=== PATIENT | female | born 1965 | race Caucasian/White ===

== ENCOUNTER 2021-02-20 13:13 | Emergency (ER) | payer MEDICAID, OTHER ==
[~2021-02-20] VITALS: Ht 157.5 cm; Wt 70.4 kg
[2021-02-20 13:27] VITALS: BP 134/92
[2021-02-20 14:35] VITALS: BP 133/85
== END 2021-02-20 14:35 ==
LOC: MED 13:13
DX: S00.81XA Abrasion of other part of head, initial encounter (principal); R55 Syncope and collapse; Y04.2XXA Assault by strike against or bumped into by another person, initial encounter; Y93.89 Activity, other specified; Y92.89 Other specified places as the place of occurrence of the external cause; Y99.8 Other external cause status
CPT/HCPCS: 70450; 99284